=== PATIENT | female | born 1975 | race African-American/Black ===

== ENCOUNTER 2022-06-15 01:25 | Day surgery (SDC) | payer OTHER, SELFPAY ==
[2022-06-01 14:28] VITALS: BMI 22.4
[2022-06-15 06:51] VITALS: BP 139/80; PULSE 74; RESP 17; TEMP 36.3; O2SAT 100
[2022-06-15] MEDS: LACTATED RINGERS 1,000 ML 150 ML IV CONT (07:02)
--- NOTE | 2022-06-15 07:30 | WPDANESEPPF ---
Anes - Initial Pre Proc Eval Procedure: Operation Date: 06/15/22 08:00 Proposed Procedures p Screening Colonoscopy - Jose F Menendez MD Date/Time: 06/15/22 07:30 Surgeon: Jose F Menendez MD Pre Op Diagnosis: neoplasm screening Patient Data Age: 47 Gender: F Height: 1.73 m Weight: 68 kg Last Vital Signs Temp 97.4 F L 06/15/22 06:51 Pulse 74 06/15/22 06:51 Resp 17 06/15/22 06:51 BP 139/80 06/15/22 06:51 Pulse Ox 100 06/15/22 06:51 O2 Del Method Room Air 06/15/22 06:51 Allergies Allergy/AdvReac Type Severity Reaction Status Date / Time amoxicillin Allergy Hives Verified 06/15/22 06:50 Penicillins Allergy Hives Verified 06/15/22 06:50 Home Medications Medication Instructions Recorded Confirmed Type ascorbic acid (vitamin C) 500 mg 500 mg PO DAILY 06/01/22 06/01/22 History tablet cholecalciferol (vitamin D3) 25 25 mcg PO DAILY 06/01/22 06/01/22 History mcg (1,000 unit) tablet (Vitamin D3) elderberry fruit 200 mg capsule 200 mg PO DAILY 06/01/22 06/01/22 History tumeric 100 mg-taylor 150 mg-olive 1 cap PO DAILY 06/01/22 06/01/22 History 50 mg-oreg 150 mg-caprylate capsule vitamin A 2,400 mcg capsule 2,400 mcg PO DAILY 06/01/22 06/01/22 History vitamin B complex 1 tablet PO DAILY 06/01/22 06/01/22 History Patient hx anesthesia problems: none Family hx anesthesia problems: none Results Review: All pre-operative results and documents have been reviewed as part of the pre-operative evaluation. [facility] Social History Social History Smoking status: Never smoker Alcohol intake: current Alcohol use details: occasional; wine Substance use type: does not use Living arrangements: alone Spiritual care concerns: No Anes - Eval Final PreProcedure Day of Procedure 06/15/22 07:30 Patient weight: normal Heart: regular rate and rhythm Lungs: clear to auscultation Airway: Mallampati scale class II Neurological: alert and oriented Last oral intake: >/= 8 hours ASA classification: II Emergent: no Anesthetic plan: proceed Anesthesia type and monitoring: general GIVS and standard monitoring Results Review: All pre-operative results and documents have been reviewed as part of the pre-operative evaluation. Informed Consent: The patient's anesthetic plan and its attendant risks and benefits were discussed with the patient/family/POA. Questions were solicited and answers provided to the satisfaction of the patient/family/POA.
--- NOTE | 2022-06-15 07:52 | PM.HPGS ---
History of Present Illness History of Present Illness Consent: Risks, benefits, and alternatives have been discussed and questions answered. Patient agrees to proceed with procedure. Chief complaint: neoplasm screening Narrative: Eyad Orosco is a 47 year old female here for first screening colonoscopy Review of Systems Constitutional: Constitutional: Denies headache(s) and Denies weakness Eyes: Eyes: Denies blurry vision ENT: Reports Normal hearing present, Denies headache(s) and Denies neck pain Cardiovascular: Cardiovascular: Denies chest pain and Denies dyspnea Respiratory: Respiratory: Denies dyspnea Gastrointestinal: Gastrointestinal: Reports no additional gastrointestinal complaints Genitourinary: Genitourinary: Denies dysuria Musculoskeletal: Musculoskeletal: Denies neck pain Integumentary/Breasts: Skin/Breast: Denies dry skin Neurologic: Reports Normal hearing present, Denies headache(s) and Denies weakness Psychiatric: Psychiatric: Denies anxiety Endocrine: Endocrine: Denies change in body appearance Hematologic/Lymphatic: Hematologic/Lymphatic: Denies easy bleeding Allergic/Immunologic: Allergic/Immunologic: Denies urticaria PMF Past Medical History Medical History (Updated 06/15/22 @ 07:53 by Jose F Menendez MD) Colon cancer screening Social History Social History Smoking status: Never smoker Alcohol intake: current Alcohol use details: occasional; wine Substance use type: does not use Living arrangements: alone Spiritual care concerns: No Meds Home Medications and Allergies Home Medications Medication Instructions Recorded Confirmed Type ascorbic acid (vitamin C) 500 mg 500 mg PO DAILY 06/01/22 06/01/22 History tablet cholecalciferol (vitamin D3) 25 25 mcg PO DAILY 06/01/22 06/01/22 History mcg (1,000 unit) tablet (Vitamin D3) elderberry fruit 200 mg capsule 200 mg PO DAILY 06/01/22 06/01/22 History tumeric 100 mg-taylor 150 mg-olive 1 cap PO DAILY 06/01/22 06/01/22 History 50 mg-oreg 150 mg-caprylate capsule vitamin A 2,400 mcg capsule 2,400 mcg PO DAILY 06/01/22 06/01/22 History vitamin B complex 1 tablet PO DAILY 06/01/22 06/01/22 History Allergies Allergy/AdvReac Type Severity Reaction Status Date / Time amoxicillin Allergy Hives Verified 06/15/22 06:50 Penicillins Allergy Hives Verified 06/15/22 06:50 Vital Signs Vital Signs - 24 hr 06/15/22 06:51 Temperature 97.4 F L Pulse Rate 74 Respiratory Rate 17 Blood Pressure 139/80 Pulse Oximetry 100 Oxygen Delivery Room Air Exam Const: General: comfortable and no acute distress HENMT: Face/Nose/Sinus: Normal nares present Eyes: General: appearance normal, both eyes and all related structures Neck: Neck: no JVD Resp: Auscultation: clear to auscultation bilaterally Cardio: Rate: regular rate Rhythm: regular rhythm GI: Inspection: non-distended GI Palp: Yes Soft to palpation Skin: General skin exam: normal color Neuro: General: gait normal Speech: normal speech Extrem: General: normal to inspection Psych: Mental Status: mental status grossly normal Assessment and Plan Assessment and plan (1) Colon cancer screening: Code(s): Z12.11 - Encounter for screening for malignant neoplasm of colon Status: Acute Assessment and Plan: colonoscopy
[2022-06-15 08:13] VITALS: BP 112/54; PULSE 78; RESP 18; O2SAT 99
[2022-06-15 08:23] VITALS: BP 106/68; PULSE 85; RESP 19; O2SAT 99
== END 2022-06-15 08:44 | disposition home or self-care (01) ==
PROVIDERS: PCP Internal Medicine; Visit Provider Internal Medicine Gastroenterology
PROC: 0DJD8ZZ Inspection of Lower Intestinal Tract, Via Natural or Artificial Opening Endoscopic (ICD-10-PCS; CPT 45378; principal; 2022-06-15 08:00)
DX: Z12.11 Encounter for screening for malignant neoplasm of colon (principal); K64.8 Other hemorrhoids
CPT/HCPCS: 45378; J2704; J7120